=== PATIENT | female | born 1995 | race African-American/Black ===

== ENCOUNTER 2021-05-21 14:45 | Inpatient (IN) | payer OTHER ==
[2021-05-21] MEDS ORDERED: ONDANSETRON *ODT* 4 MG TABLET SL PRN (18:15)
[2021-05-21] MEDS ORDERED: MAGNESIUM CITRATE 300 ML BOTTLE PO PRN (18:15)
[2021-05-21] MEDS ORDERED: METHOCARBAMOL 500 MG TABLET PO PRN (18:15)
[2021-05-21] MEDS ORDERED: ACETAMINOPHEN 325 MG TABLET (FP) PO PRN ×2 (18:15)
[2021-05-21] MEDS ORDERED: MENTHOL/PHENOL 1 EACH UD MM PRN (18:15)
[2021-05-21] MEDS ORDERED: MAGNESIUM HYDROX 2400MG/30ML ORAL SUSPENSION 30 ML CUP PO PRN (18:15)
[2021-05-21] MEDS ORDERED: IBUPROFEN 400 MG TABLET (FP) PO PRN (18:15)
[2021-05-21] MEDS ORDERED: P-EPHED 60MG/TRIPROLIDI 2.5MG TABLET PO PRN (18:15)
[2021-05-21] MEDS ORDERED: MAG HYDROX/AL HYDROX/SIMETH 30 ML UNIT-DOSE CUP PO PRN (18:15)
[2021-05-21] MEDS ORDERED: LOPERAMIDE HCL 2 MG CAPSULE PO PRN (18:15)
[2021-05-21] MEDS ORDERED: BISMUTH SUBSALICYLATE 524 MG/30 ML PO PRN (18:15)
[2021-05-21] MEDS ORDERED: cloNIDine HCL 0.1 MG TABLET PO PRN (18:17)
[2021-05-21] MEDS ORDERED: methaDONE HCL 10 MG TABLET (FOR DETOX USE ONLY) PO ONE (18:17)
[2021-05-21 18:29] VITALS: BMI 22.3
[2021-05-21] MEDS ORDERED: methaDONE HCL 10 MG TABLET PO ONE (22:35)
[2021-05-21] MEDS: diazePAM 5 MG TABLET PO PRN (22:49)
[2021-05-21] MEDS: hydrOXYzine PAMOATE 25 MG CAPSULE (FP) PO PRN (22:50)
[2021-05-21] MEDS: MELATONIN 5 MG TABLETS PO PRN (22:50)
[2021-05-21] MEDS: THIAMINE HCL 100 MG TABLET (FP) PO SCH (22:50)
[2021-05-22] MEDS: NICOTINE POLACRILEX 2 MG GUM BUC PRN (08:01)
[2021-05-22] MEDS ORDERED: methaDONE HCL 10 MG TABLET (FOR DETOX USE ONLY) ONE (09:32)
[2021-05-22] MEDS: PRENATAL VITAMINS W/ FOLIC ACID TABLET (FP) PO SCH (10:34)
[2021-05-22] MEDS: NICOTINE 7 MG/24 HOURS TOPICAL PATCH TD SCH (10:37)
[2021-05-22] MEDS: diazePAM 5 MG TABLET PO PRN ×2 (10:38→20:32)
[2021-05-22] MEDS: hydrOXYzine PAMOATE 25 MG CAPSULE (FP) PO PRN (10:38)
[2021-05-22 10:47] LABS: HEMATOCRIT 35.6 % (32.4-45.2); HEMOGLOBIN 11.9 GM/dL (10.7-15.3); MCH 29.6 pg (25.7-33.7); MCHC 33.3 g/dl (32.0-36.0); MEAN PLT VOLUME 8.7 fl (7.5-11.1); PLATELET COUNT 257 10^3/uL (134-434); RDW 14.7 % (11.6-15.6); WHITE BLOOD COUNT 8.2 K/mm3 (4.0-10.0)
[2021-05-22 10:56] LABS: ALBUMIN 3.2 g/dl (3.4-5.0)
[2021-05-22 10:57] LABS: BLOOD UREA NITROGEN 9.6 mg/dL (7-18)
[2021-05-22 11:00] LABS: CREATININE 0.8 mg/dL (0.55-1.3)
[2021-05-22 11:02] LABS: BILIRUBIN,TOTAL 0.2 mg/dL (0.2-1); TOT PROT 6.8 g/dl (6.4-8.2)
[2021-05-22] MEDS: BACLOFEN 10 MG TABLET (FP) PO PRN (20:32)
[2021-05-22] MEDS: THIAMINE HCL 100 MG TABLET (FP) PO SCH (23:42)
[2021-05-23] MEDS: hydrOXYzine PAMOATE 25 MG CAPSULE (FP) PO PRN ×3 (05:40→22:56)
[2021-05-23] MEDS: diazePAM 5 MG TABLET PO PRN ×3 (05:42→22:59)
[2021-05-23] MEDS ORDERED: methaDONE HCL 10 MG TABLET (FOR DETOX USE ONLY) PO ONE (10:00)
[2021-05-23] MEDS: NICOTINE 7 MG/24 HOURS TOPICAL PATCH TD SCH (10:18)
[2021-05-23] MEDS: NICOTINE POLACRILEX 2 MG GUM BUC PRN (10:18)
[2021-05-23] MEDS: PRENATAL VITAMINS W/ FOLIC ACID TABLET (FP) PO SCH (10:18)
[2021-05-23] MEDS: BACLOFEN 10 MG TABLET (FP) PO PRN (10:20)
[2021-05-23] MEDS: THIAMINE HCL 100 MG TABLET (FP) PO SCH (22:56)
[2021-05-23] MEDS: MELATONIN 5 MG TABLETS PO PRN (22:56)
[2021-05-24] MEDS: diazePAM 5 MG TABLET PO PRN ×3 (05:26→16:48)
[2021-05-24] MEDS ORDERED: methaDONE HCL 10 MG TABLET (FOR DETOX USE ONLY) ONE (09:39)
[2021-05-24] MEDS: PRENATAL VITAMINS W/ FOLIC ACID TABLET (FP) PO SCH (10:30)
[2021-05-24] MEDS: BACLOFEN 10 MG TABLET (FP) PO PRN ×2 (10:31→22:28)
[2021-05-24] MEDS: hydrOXYzine PAMOATE 25 MG CAPSULE (FP) PO PRN ×2 (10:32→13:52)
[2021-05-24] MEDS: NICOTINE 7 MG/24 HOURS TOPICAL PATCH TD SCH (10:33)
[2021-05-24] MEDS: NICOTINE 10 MG CARTRIDGE (INHALER) IH SCH (10:59)
[2021-05-24 14:08] LABS: SARS-CoV-2 NAA Not Detected (Not Detected)
[2021-05-24] MEDS: cloNIDine HCL 0.1 MG TABLET PO PRN (16:48)
[2021-05-24] MEDS: THIAMINE HCL 100 MG TABLET (FP) PO SCH (22:25)
[2021-05-24] MEDS: SUVOREXANT 10 MG TABLET PO PRN (22:26)
[2021-05-25] MEDS: cloNIDine HCL 0.1 MG TABLET PO PRN ×2 (05:58→17:34)
[2021-05-25] MEDS ORDERED: methaDONE HCL 10 MG TABLET (FOR DETOX USE ONLY) PO ONE (10:00)
[2021-05-25] MEDS: hydrOXYzine PAMOATE 25 MG CAPSULE (FP) PO PRN ×2 (10:35→17:34)
[2021-05-25] MEDS: BACLOFEN 10 MG TABLET (FP) PO PRN (10:35)
[2021-05-25] MEDS: PRENATAL VITAMINS W/ FOLIC ACID TABLET (FP) PO SCH (10:35)
[2021-05-25] MEDS: NICOTINE 10 MG CARTRIDGE (INHALER) IH SCH (10:36)
[2021-05-25] MEDS: THIAMINE HCL 100 MG TABLET (FP) PO SCH (22:25)
[2021-05-25] MEDS: SUVOREXANT 10 MG TABLET PO PRN (22:25)
[2021-05-26] MEDS: cloNIDine HCL 0.1 MG TABLET PO PRN (08:52)
[2021-05-26 09:52] VITALS: BP 112/55; PULSE 83; TEMP 97.8
[2021-05-26] MEDS: PRENATAL VITAMINS W/ FOLIC ACID TABLET (FP) PO SCH (10:50)
[2021-05-26] MEDS: NICOTINE 10 MG CARTRIDGE (INHALER) IH SCH (10:50)
== END 2021-05-26 10:55 | disposition home or self-care (01) | DRG 773 ==
LOC: YASAS 14:45 → Y6N 20:14
PROVIDERS: ADMIT Allergy & Immunology; ATTEND Allergy & Immunology
PROC: HZ2ZZZZ Detoxification Services for Substance Abuse Treatment (ICD-10-PCS; principal; 2021-05-21)
DX: F11.23 Opioid dependence with withdrawal (principal); F10.20 Alcohol dependence, uncomplicated; F14.20 Cocaine dependence, uncomplicated; F12.10 Cannabis abuse, uncomplicated; F17.210 Nicotine dependence, cigarettes, uncomplicated; M25.461 Effusion, right knee; Z62.810 Personal history of physical and sexual abuse in childhood; Z91.410 Personal history of adult physical and sexual abuse; W19.XXXA Unspecified fall, initial encounter; Y92.9 Unspecified place or not applicable
CPT/HCPCS: 36415; 80053; 81025; 85027; 86780; 93005; 93010; C9803; J0475; J0735; U0003; U0005

== ENCOUNTER 2022-05-31 11:34 | Inpatient (IN) | payer OTHER ==
[2022-05-31 12:35] VITALS: BMI 20.7
[2022-05-31] MEDS ORDERED: ACETAMINOPHEN 325 MG TABLET (FP) PO PRN (13:58)
[2022-05-31] MEDS ORDERED: BENZONATATE 200 MG CAPSULE PO PRN (13:58)
[2022-05-31] MEDS ORDERED: NALOXONE HCL 0.4 MG/ML VIAL IM PRN (13:58)
[2022-05-31] MEDS ORDERED: ONDANSETRON *ODT* 4 MG TABLET SL PRN (13:58)
[2022-05-31] MEDS ORDERED: NICOTINE 10 MG CARTRIDGE (INHALER) IH PRN (13:58)
[2022-05-31] MEDS ORDERED: guaiFENesin 600 MG TABLET.ER (FP) PO PRN (13:58)
[2022-05-31] MEDS ORDERED: BISMUTH SUBSALICYLATE 524 MG/30 ML PO PRN (13:58)
[2022-05-31] MEDS ORDERED: NALOXONE HCL (KLOXXADO) 8 MG SPRAY NS PRN (13:58)
[2022-05-31] MEDS ORDERED: BENZOCAINE/MENTHOL (CHLORASEPTIC ) LOZENGE MM PRN (13:58)
[2022-05-31] MEDS ORDERED: LOPERAMIDE HCL 2 MG CAPSULE PO PRN (13:58)
[2022-05-31] MEDS ORDERED: MAG HYDROX/AL HYDROX/SIMETH 30 ML UNIT-DOSE CUP PO PRN (13:58)
[2022-05-31] MEDS ORDERED: DICYCLOMINE HCL 10 MG CAPSULE PO PRN (13:58)
[2022-05-31] MEDS ORDERED: IBUPROFEN 600 MG TABLET (FP) PO PRN (13:58)
[2022-05-31] MEDS ORDERED: IBUPROFEN 400 MG TABLET (FP) PO PRN (13:58)
[2022-05-31] MEDS ORDERED: METHOCARBAMOL 500 MG TABLET PO PRN (13:58)
[2022-05-31] MEDS ORDERED: MAGNESIUM HYDROX 2400MG/30ML ORAL SUSPENSION 30 ML CUP PO PRN (13:58)
[2022-05-31] MEDS ORDERED: methaDONE HCL 10 MG TABLET (FOR DETOX USE ONLY) PO ONE (15:00)
[2022-05-31] MEDS: hydrOXYzine PAMOATE 25 MG CAPSULE (FP) PO PRN (19:49)
[2022-05-31] MEDS ORDERED: MELATONIN 5 MG TABLETS PO SCH (22:00)
[2022-05-31] MEDS: THIAMINE HCL 100 MG TABLET (FP) PO SCH (22:29)
[2022-06-01] MEDS ORDERED: methaDONE HCL 40 MG DISPERSABLE TABLET PO SCH (09:45)
[2022-06-01] MEDS: PRENATAL VITAMINS W/ FOLIC ACID TABLET (FP) PO SCH (10:40)
[2022-06-01] MEDS: methaDONE 40 MG, methaDONE 30 MG PO SCH (10:41)
[2022-06-01 11:00] LABS: HEMATOCRIT 32.8 % (32.4-45.2); HEMOGLOBIN 10.8 GM/dL (10.7-15.3); MCH 27.6 pg (25.7-33.7); MEAN CELL VOLUME 83.5 fl (80-96); MEAN PLT VOLUME 8.4 fl (7.5-11.1); PLATELET COUNT 226 10^3/uL (134-434); RBC 3.93 M/mm3 (3.60-5.2); RDW 16.1 % (11.6-15.6); WHITE BLOOD COUNT 5.7 K/mm3 (4.0-10.0)
[2022-06-01 11:09] LABS: CALCIUM 8.5 mg/dL (8.5-10.1)
[2022-06-01 11:10] LABS: ALBUMIN 2.9 g/dl (3.4-5.0); BLOOD UREA NITROGEN 11.1 mg/dL (7-18)
[2022-06-01 11:12] LABS: CREATININE 0.6 mg/dL (0.55-1.3)
[2022-06-01 11:14] LABS: BILIRUBIN,TOTAL 0.6 mg/dL (0.2-1); TOT PROT 6.5 g/dl (6.4-8.2)
[2022-06-01] MEDS ORDERED: SUVOREXANT 10 MG TABLET PO PRN (22:00)
[2022-06-01] MEDS: THIAMINE HCL 100 MG TABLET (FP) PO SCH (22:42)
[2022-06-02] MEDS: methaDONE 40 MG, methaDONE 30 MG PO SCH (06:59)
[2022-06-02] MEDS: hydrOXYzine PAMOATE 25 MG CAPSULE (FP) PO PRN (07:06)
[2022-06-02] MEDS ORDERED: diazePAM 5 MG TABLET PO PRN (09:53)
[2022-06-02] MEDS: PRENATAL VITAMINS W/ FOLIC ACID TABLET (FP) PO SCH ×2 (10:23→10:26)
[2022-06-02] MEDS: diazePAM 5 MG TABLET PO SCH ×3 (10:25→22:48)
[2022-06-02] MEDS: POLYETHYLENE GLYCOL (HEALTHYLAX) 3350 17 GM PACKET PO PRN (11:41)
[2022-06-02] MEDS: THIAMINE HCL 100 MG TABLET (FP) PO SCH (22:48)
[2022-06-03] MEDS: methaDONE 40 MG, methaDONE 30 MG PO SCH (05:24)
[2022-06-03] MEDS: diazePAM 5 MG TABLET PO SCH ×4 (05:26→22:27)
[2022-06-03] MEDS: PRENATAL VITAMINS W/ FOLIC ACID TABLET (FP) PO SCH (10:17)
[2022-06-03] MEDS: POLYETHYLENE GLYCOL (HEALTHYLAX) 3350 17 GM PACKET PO PRN (17:48)
[2022-06-03] MEDS: THIAMINE HCL 100 MG TABLET (FP) PO SCH (22:27)
[2022-06-04] MEDS: methaDONE 40 MG, methaDONE 30 MG PO SCH (05:29)
[2022-06-04] MEDS ORDERED: diazePAM 5 MG TABLET PO SCH (06:00)
[2022-06-04 06:21] VITALS: TEMP 97.3
[2022-06-04 09:01] VITALS: BP 115/57; PULSE 60; RESP 18
[2022-06-04] MEDS: PRENATAL VITAMINS W/ FOLIC ACID TABLET (FP) PO SCH (10:19)
[2022-06-04] MEDS: hydrOXYzine PAMOATE 25 MG CAPSULE (FP) PO PRN (10:19)
[2022-06-05] MEDS ORDERED: diazePAM 5 MG TABLET PO SCH (06:00)
[2022-06-06] MEDS ORDERED: diazePAM 5 MG TABLET PO ONE (06:00)
== END 2022-06-04 12:48 | disposition left against medical advice (07) | DRG 770 ==
LOC: YASAS 11:34 → UNDOADMIN 14:04 → Y3N 14:04
PROVIDERS: ADMIT Surgery; ATTEND Allergy & Immunology
PROC: HZ2ZZZZ Detoxification Services for Substance Abuse Treatment (ICD-10-PCS; principal; 2022-05-31)
DX: F10.230 Alcohol dependence with withdrawal, uncomplicated (principal); F11.20 Opioid dependence, uncomplicated; F14.20 Cocaine dependence, uncomplicated; F12.10 Cannabis abuse, uncomplicated; F17.210 Nicotine dependence, cigarettes, uncomplicated; F19.280 Other psychoactive substance dependence with psychoactive substance-induced anxiety disorder; F19.24 Other psychoactive substance dependence with psychoactive substance-induced mood disorder; Z62.810 Personal history of physical and sexual abuse in childhood; Z28.310 Unvaccinated for COVID-19; Z28.21 Immunization not carried out because of patient refusal
CPT/HCPCS: 36415; 80053; 85027; 86780; C9803-CS; U0003; U0005

== ENCOUNTER 2023-03-02 14:19 | Inpatient (IN) | payer OTHER ==
[2023-03-02 14:38] VITALS: BMI 22.3
[2023-03-02] MEDS ORDERED: NALOXONE HCL (KLOXXADO) 8 MG SPRAY NS PRN (18:51)
[2023-03-02] MEDS ORDERED: ONDANSETRON *ODT* 4 MG TABLET SL PRN (18:51)
[2023-03-02] MEDS ORDERED: BENZONATATE 200 MG CAPSULE PO PRN (18:51)
[2023-03-02] MEDS ORDERED: POLYETHYLENE GLYCOL (HEALTHYLAX) 3350 17 GM PACKET PO PRN (18:51)
[2023-03-02] MEDS ORDERED: LOPERAMIDE HCL 2 MG CAPSULE PO PRN (18:51)
[2023-03-02] MEDS ORDERED: MAGNESIUM HYDROX 2400MG/30ML ORAL SUSPENSION 30 ML CUP PO PRN (18:51)
[2023-03-02] MEDS ORDERED: IBUPROFEN 400 MG TABLET (FP) PO PRN (18:51)
[2023-03-02] MEDS ORDERED: MAG HYDROX/AL HYDROX/SIMETH 30 ML UNIT-DOSE CUP PO PRN (18:51)
[2023-03-02] MEDS ORDERED: NALOXONE HCL 0.4 MG/ML VIAL IM PRN (18:51)
[2023-03-02] MEDS ORDERED: IBUPROFEN 600 MG TABLET (FP) PO PRN (18:51)
[2023-03-02] MEDS ORDERED: BISMUTH SUBSALICYLATE 524 MG/30 ML PO PRN (18:51)
[2023-03-02] MEDS ORDERED: ACETAMINOPHEN 325 MG TABLET (FP) PO PRN (18:51)
[2023-03-02] MEDS ORDERED: guaiFENesin 600 MG TABLET.ER (FP) PO PRN (18:51)
[2023-03-02] MEDS ORDERED: BENZOCAINE/MENTHOL (CHLORASEPTIC ) LOZENGE MM PRN (18:51)
[2023-03-02] MEDS ORDERED: methaDONE HCL 10 MG TABLET (FOR DETOX USE ONLY) ONE (19:15)
[2023-03-02] MEDS: methaDONE HCL 10 MG TABLET (FOR DETOX USE ONLY) PO ONE (19:19)
[2023-03-02] MEDS: MELATONIN 5 MG TABLETS PO SCH (22:20)
[2023-03-02] MEDS: THIAMINE HCL 100 MG TABLET (FP) PO SCH (22:20)
[2023-03-02] MEDS: METHOCARBAMOL 500 MG TABLET PO PRN (22:21)
[2023-03-03] MEDS: cloNIDine HCL 0.1 MG TABLET PO PRN (02:53)
[2023-03-03] MEDS: PRENATAL VITAMINS W/ FOLIC ACID TABLET (FP) PO SCH (10:26)
[2023-03-03] MEDS: NICOTINE 14 MG/24 HOURS TOPICAL PATCH TD SCH (10:28)
[2023-03-03] MEDS ORDERED: SUVOREXANT 10 MG TABLET PO PRN (22:00)
[2023-03-03] MEDS: OLANZapine 10 MG TABLET PO SCH (22:11)
[2023-03-03] MEDS: MIRTAZAPINE 15 MG TABLET (FP) PO SCH (22:11)
[2023-03-04] MEDS: NICOTINE POLACRILEX 2 MG GUM BUC PRN (05:28)
[2023-03-04] MEDS: hydrOXYzine PAMOATE 25 MG CAPSULE (FP) PO PRN (05:28)
[2023-03-04] MEDS: methaDONE HCL 10 MG TABLET (FOR DETOX USE ONLY) PO ONE (09:18)
[2023-03-04] MEDS: diazePAM 5 MG TABLET PO PRN (09:19)
[2023-03-05 07:02] VITALS: RESP 18
[2023-03-05 07:10] VITALS: BP 109/65; PULSE 94; TEMP 97.7
[2023-03-06] MEDS ORDERED: methaDONE HCL 10 MG TABLET (FOR DETOX USE ONLY) PO ONE (10:00)
== END 2023-03-05 10:04 | disposition left against medical advice (07) | DRG 770 ==
LOC: YASAS 14:19 → Y6N 19:12
PROVIDERS: ADMIT Allergy & Immunology; ATTEND Surgery
PROC: HZ2ZZZZ Detoxification Services for Substance Abuse Treatment (ICD-10-PCS; principal; 2023-03-02)
DX: F11.23 Opioid dependence with withdrawal (principal); F14.20 Cocaine dependence, uncomplicated; F12.20 Cannabis dependence, uncomplicated; F17.210 Nicotine dependence, cigarettes, uncomplicated; F25.1 Schizoaffective disorder, depressive type; Z62.810 Personal history of physical and sexual abuse in childhood; Z91.410 Personal history of adult physical and sexual abuse
CPT/HCPCS: 80305; 81025; 87635; 93005; 93010

== ENCOUNTER 2023-10-07 09:52 | Inpatient (IN) | payer OTHER ==
[2023-10-07 10:16] VITALS: BMI 19.5
[2023-10-07] MEDS ORDERED: MAG HYDROX/AL HYDROX/SIMETH 30 ML UNIT-DOSE CUP PO PRN (10:36)
[2023-10-07] MEDS ORDERED: hydrOXYzine PAMOATE 25 MG CAPSULE (FP) PO PRN (10:36)
[2023-10-07] MEDS ORDERED: IBUPROFEN 600 MG TABLET (FP) PO PRN (10:36)
[2023-10-07] MEDS ORDERED: POLYETHYLENE GLYCOL (HEALTHYLAX) 3350 17 GM PACKET PO PRN (10:36)
[2023-10-07] MEDS ORDERED: BENZONATATE 200 MG CAPSULE PO PRN (10:36)
[2023-10-07] MEDS ORDERED: NALOXONE (NARCAN) HCL 4 MG/0.1 ML SPRAY NS PRN (10:36)
[2023-10-07] MEDS ORDERED: BISMUTH SUBSALICYLATE 262 MG/15 ML BTL PO PRN (10:36)
[2023-10-07] MEDS ORDERED: BENZOCAINE/MENTHOL (CHLORASEPTIC ) LOZENGE MM PRN (10:36)
[2023-10-07] MEDS ORDERED: MAGNESIUM HYDROX 2400MG/30ML ORAL SUSPENSION 30 ML CUP PO PRN (10:36)
[2023-10-07] MEDS ORDERED: ACETAMINOPHEN 325 MG TABLET (FP) PO PRN (10:36)
[2023-10-07] MEDS ORDERED: NICOTINE POLACRILEX 2 MG LOZENGE BC PRN (10:36)
[2023-10-07] MEDS ORDERED: LOPERAMIDE HCL 2 MG CAPSULE PO PRN (10:36)
[2023-10-07] MEDS ORDERED: guaiFENesin 600 MG TABLET.ER (FP) PO PRN (10:36)
[2023-10-07] MEDS ORDERED: NALOXONE HCL 0.4 MG/ML VIAL IM PRN (10:36)
[2023-10-07] MEDS ORDERED: DICYCLOMINE HCL 10 MG CAPSULE PO PRN (10:36)
[2023-10-07] MEDS ORDERED: NICOTINE POLACRILEX 2 MG GUM BUC PRN (10:36)
[2023-10-07] MEDS ORDERED: ONDANSETRON *ODT* 4 MG TABLET ONE (11:44)
[2023-10-07] MEDS ORDERED: PRENATAL VITAMINS W/ FOLIC ACID TABLET (FP) PO ONE (11:44)
[2023-10-07] MEDS: ONDANSETRON *ODT* 4 MG TABLET SL PRN (11:46)
[2023-10-07] MEDS: PRENATAL VITAMINS W/ FOLIC ACID TABLET (FP) PO SCH (11:46)
[2023-10-07 14:28] LABS: HIV INTERPRETATION NEGATIVE (NEGATIVE)
[2023-10-07 16:26] VITALS: RESP 16
[2023-10-07] MEDS: THIAMINE 100 MG TABLET PO SCH (23:07)
[2023-10-07] MEDS: OLANZapine 5 MG TABLET PO SCH (23:07)
[2023-10-07] MEDS: MELATONIN 5 MG TABLETS PO SCH (23:07)
[2023-10-08] MEDS ORDERED: NALOXONE (NARCAN) HCL 4 MG/0.1 ML SPRAY NS PRN (07:31)
[2023-10-08] MEDS ORDERED: cloNIDine HCL 0.1 MG TABLET PO PRN (09:51)
[2023-10-08] MEDS ORDERED: diazePAM 5 MG TABLET PO PRN (09:51)
[2023-10-08] MEDS: METHOCARBAMOL 500 MG TABLET PO PRN (10:20)
[2023-10-08] MEDS: diazePAM 5 MG TABLET PO SCH (10:20)
[2023-10-08] MEDS: methaDONE HCL 10 MG TABLET (FOR DETOX USE ONLY) PO ONE (10:20)
[2023-10-08] MEDS: TRIMETHOBENZAMIDE HCL 200MG/2ML INJ IM ONE (10:49)
[2023-10-08 11:08] VITALS: BP 110/72; PULSE 61; TEMP 98.9
[2023-10-08 11:51] LABS: HEMATOCRIT 36.8 % (32.4-45.2); HEMOGLOBIN 12.5 GM/dL (10.7-15.3); MCH 28.6 pg (25.7-33.7); MCHC 33.9 g/dl (32.0-36.0); MEAN CELL VOLUME 84.4 fl (80-96); MEAN PLT VOLUME 8.8 fl (7.5-11.1); PLATELET COUNT 268 10^3/uL (134-434); RBC 4.36 M/mm3 (3.60-5.2); RDW 14.9 % (11.6-15.6); WHITE BLOOD COUNT 5.5 K/mm3 (4.0-10.0)
[2023-10-08] MEDS: IBUPROFEN 400 MG TABLET (FP) PO PRN (12:05)
[2023-10-08 12:35] LABS: ALBUMIN 3.4 g/dl (3.4-5.0); BLOOD UREA NITROGEN 8.3 mg/dL (7-18); CALCIUM 9.3 mg/dL (8.5-10.1); POTASSIUM 4.7 mmol/L (3.5-5.1)
[2023-10-08 12:41] LABS: CREATININE 0.6 mg/dL (0.55-1.3); TOT PROT 8.8 g/dl (6.4-8.2)
[2023-10-08 12:49] LABS: BILIRUBIN,TOTAL 1.1 mg/dL (0.2-1)
[2023-10-10] MEDS ORDERED: diazePAM 5 MG TABLET PO SCH (06:00)
[2023-10-10] MEDS ORDERED: methaDONE HCL 10 MG TABLET (FOR DETOX USE ONLY) PO ONE (10:00)
[2023-10-11] MEDS ORDERED: diazePAM 5 MG TABLET PO SCH (06:00)
[2023-10-12] MEDS ORDERED: diazePAM 5 MG TABLET PO ONE (06:00)
[2023-10-12] MEDS ORDERED: methaDONE HCL 10 MG TABLET (FOR DETOX USE ONLY) PO ONE (10:00)
== END 2023-10-08 14:05 | disposition left against medical advice (07) | DRG 770 ==
LOC: YASAS 09:52 → Y6N 14:50
PROVIDERS: ADMIT Allergy & Immunology; ATTEND Surgery
PROC: HZ2ZZZZ Detoxification Services for Substance Abuse Treatment (ICD-10-PCS; principal; 2023-10-07)
DX: F11.23 Opioid dependence with withdrawal (principal); F13.20 Sedative, hypnotic or anxiolytic dependence, uncomplicated; F14.20 Cocaine dependence, uncomplicated; F15.20 Other stimulant dependence, uncomplicated; F12.20 Cannabis dependence, uncomplicated; F17.210 Nicotine dependence, cigarettes, uncomplicated; F25.1 Schizoaffective disorder, depressive type; F31.9 Bipolar disorder, unspecified; Z86.19 Personal history of other infectious and parasitic diseases
CPT/HCPCS: 36415; 80053; 80305; 80307; 81025; 85027; 86593; 86780; 86803; 87389; 87522; Q0162